=== PATIENT | male | born 1995 ===

== ENCOUNTER 2019-10-23 21:34 | Emergency (ER) | payer SELFPAY ==
[2019-10-23] MEDS ORDERED: Tetan/Diph/Pertus SYR(Tdap)* 0.5 ML SYR(BOOSTRIX) use SYR contains LATEX IM ONE (22:04)
[2019-10-23 22:06] VITALS: BP 126/71
--- NOTE | 2019-10-23 22:07 | UC ---
Hand/Wrist HPI - HPI Summary HPI Summary: 24-year-old male who lacerated the dorsum of his right thumb between the PIP and DIP earlier today at work. He was able to stop the bleeding with direct pressure and a bandage however when he continued to use the hand at work he would continue to bleed. No complaint of any weakness or numbness. Patient not sure when his last tetanus was. - History Of Current Complaint Chief Complaint: UCLaceration Stated Complaint: FINGER INJURY Time Seen by Provider: 10/23/19 21:54 Pain Intensity: 3 - Allergies/Home Medications Allergies/Adverse Reactions: Allergies Allergy/AdvReac Type Severity Reaction Status Date / Time cephalexin [From Keflex] Allergy Severe tongue Verified 10/23/19 22:07 swelling, hives Cephalosporins Allergy Severe tongue Verified 10/23/19 22:07 swelling, hives Penicillins Allergy Severe hives, Verified 10/23/19 22:07 tongue swelling Home Medications: Home Medications Levothyroxine TAB* [Synthroid 100 MCG TAB*] 1 tab PO WEEKLY 10/23/19 [History Confirmed 10/23/19] Levothyroxine TAB* [Synthroid 100 MCG TAB*] 200 mcg PO DAILY 10/23/19 [History Confirmed 10/23/19] PMH/Surg Hx/FS Hx/Imm Hx Previously Healthy: Yes Endocrine History: Hypothyroidism - Surgical History Surgical History: None - Family History Known Family History: Positive: Non-Contributory - Social History Alcohol Use: None Substance Use Type: None Smoking Status (MU): Never Smoked Tobacco Review of Systems All Other Systems Reviewed And Are Negative: Yes Constitutional: Positive: Negative Skin: Positive: Other - see hpi Eyes: Positive: Negative ENT: Positive: Negative Respiratory: Positive: Negative Cardiovascular: Positive: Negative Gastrointestinal: Positive: Negative Motor: Positive: Negative Neurovascular: Positive: Negative Musculoskeletal: Positive: Negative Neurological/Mental Status: Positive: Negative Psychological: Positive: Negative Is Patient Immunocompromised?: No Physical Exam Triage Information Reviewed: Yes Appearance: Well-Appearing, No Pain Distress, Well-Nourished Vital Signs: Initial Vital Signs Temp 98 F 10/23/19 22:02 Pulse 78 10/23/19 22:02 Resp 16 10/23/19 22:02 BP 126/71 10/23/19 22:02 Pulse Ox 98 10/23/19 22:02 Vital Signs Reviewed: Yes Eye Exam: Normal Eyes: Positive: Conjunctiva Clear Neck: Positive: Supple Respiratory: Positive: No respiratory distress Musculoskeletal: Positive: Strength Intact, ROM Intact, Other: - Right thumb has full range of motion full-strength normal capillary refill normal sensation. Neurological: Positive: Alert, Muscle Tone Normal Psychological: Positive: Age Appropriate Behavior Skin: Positive: Other - There is a 1 cm partial-thickness laceration on the dorsum of the left thumb between the PIP and the DIP. No active bleeding at this time. I used skin adhesive to close the wound. Hand/Wrist Course/Dx - Course Course Of Treatment: Strength and sensation was normal in the thumb no evidence of any tendon injury at this time. Patient received T tap here. Laceration glued. Pasty reevaluate if worsening occurs concerns. - Differential Dx/Diagnosis Provider Diagnosis: Laceration of right hand Discharge ED - Sign-Out/Discharge Documenting (check all that apply): Patient Departure All imaging exams completed and their final reports reviewed: No Studies - Discharge Plan Condition: Stable Disposition: HOME Patient Education Materials: Laceration (ED), Skin Adhesive Care (ED) Referrals: [facility] [place] [facility] [Outside] Additional Instructions: FOLLOW UP WITH YOUR DOCTOR IF NOT COMPLETELY IMPROVED. YOU RECEIVED THE TDAP (TETANUS AND DIPTHERIA) IMMUNIZATION TODAY. GET REEVALUATED SOONER IF NOT IMPROVED OR WORSE; SIGNS OF INFECTION OR ANY QUESTIONS OR CONCERNS. - Billing Disposition and Condition Condition: STABLE Disposition: Home
== END 2019-10-23 22:25 | disposition home or self-care (01) ==
LOC: UCEAST 21:34
DX: S61.011A Laceration without foreign body of right thumb without damage to nail, initial encounter (principal); X58.XXXA Exposure to other specified factors, initial encounter; Y92.9 Unspecified place or not applicable; Z88.0 Allergy status to penicillin; Z88.1 Allergy status to other antibiotic agents; E03.9 Hypothyroidism, unspecified; Z79.890 Hormone replacement therapy
CPT/HCPCS: 12001; 90471; 90715; 99201; G0463